=== PATIENT | male | born 1995 | race American Indian/Alaskan Native ===

== ENCOUNTER 2020-07-07 14:41 | Emergency (ER) | payer SELFPAY ==
[2020-07-07 16:20] VITALS: BP 106/69
--- NOTE | 2020-07-07 16:23 | Emergency Department Report ---
ED ENT HPI - General Chief complaint: Sore Throat Stated complaint: NAS, SORE THROAT Time Seen by Provider: 07/07/20 16:13 Source: patient Mode of arrival: Ambulatory Limitations: No Limitations - History of Present Illness Initial comments: Patient is a 24-year-old male who presents emergency room with complaints of a sore throat that began a week ago. He states in the last 2 days it has become more uncomfortable and hurts to swallow. He states he is able to tolerate p.o. intake. He states that his tonsils feel swollen and he noticed some white spots. He states he also has right ear pain. He denies any fever, nausea, vomiting, diarrhea, ear drainage, hearing changes, shortness of breath. Past medical history of HIV and reports he is undetectable. No allergies to medications. No known sick contacts. No recent travel. - Related Data Previous Rx's Medication Instructions Recorded Last Taken Type Nystas/Diphen/Xyl Visc/Mylanta 30 ml MM Q4H PRN #300 ml 07/07/20 Unknown Rx [Magic Mouthwash] Penicillin Vk [Veetids TAB] 500 mg PO BID 10 Days #40 tablet 07/07/20 Unknown Rx Allergies Allergy/AdvReac Type Severity Reaction Status Date / Time No Known Allergies Allergy Verified 07/07/20 15:18 ED Dental HPI - General Chief complaint: Sore Throat Stated complaint: NAS, SORE THROAT Time Seen by Provider: 07/07/20 16:13 Source: patient Mode of arrival: Ambulatory Limitations: No Limitations - Related Data Previous Rx's Medication Instructions Recorded Last Taken Type Nystas/Diphen/Xyl Visc/Mylanta 30 ml MM Q4H PRN #300 ml 07/07/20 Unknown Rx [Magic Mouthwash] Penicillin Vk [Veetids TAB] 500 mg PO BID 10 Days #40 tablet 07/07/20 Unknown Rx Allergies Allergy/AdvReac Type Severity Reaction Status Date / Time No Known Allergies Allergy Verified 07/07/20 15:18 ED Review of Systems ROS: Stated complaint: NAS, SORE THROAT Other details as noted in HPI Comment: All other systems reviewed and negative ED Past Medical Hx - Past Medical History Previous Medical History?: No - Surgical History Additional Surgical History: L arm sx - Social History Smoking Status: Current Every Day Smoker Substance Use Type: None - Medications Home Medications: Home Medications Medication Instructions Recorded Confirmed Last Taken Type Nystas/Diphen/Xyl Visc/Mylanta 30 ml MM Q4H PRN #300 ml 07/07/20 Unknown Rx [Magic Mouthwash] Penicillin Vk [Veetids TAB] 500 mg PO BID 10 Days #40 tablet 07/07/20 Unknown Rx ED Physical Exam - General Limitations: No Limitations General appearance: alert, in no apparent distress - Head Head exam: Present: atraumatic, normocephalic - Eye Eye exam: Present: normal appearance - ENT ENT exam: Present: mucous membranes moist, TM's normal bilaterally, normal external ear exam, other (tonsillar hypertrophy with small amount of exudates bilaterally, uvula is midline, no uvular edema or deviation, no trismus, no muffled voice) - Respiratory Respiratory exam: Present: normal lung sounds bilaterally. Absent: respiratory distress, wheezes, rales, rhonchi, stridor, chest wall tenderness, accessory muscle use, decreased breath sounds, prolonged expiratory - Cardiovascular Cardiovascular Exam: Present: normal rhythm, tachycardia (mildly), normal heart sounds. Absent: systolic murmur, diastolic murmur, rubs, gallop - Neurological Exam Neurological exam: Present: alert, oriented X3 - Psychiatric Psychiatric exam: Present: normal affect, normal mood - Skin Skin exam: Present: warm, dry, intact ED Course Vital Signs 07/07/20 07/07/20 15:18 16:44 Temperature 99.3 F Pulse Rate 110 H 89 Respiratory 18 Rate Blood Pressure 106/69 O2 Sat by Pulse 99 Oximetry ED Medical Decision Making - Lab Data Vital Signs 07/07/20 07/07/20 15:18 16:44 Temperature 99.3 F Pulse Rate 110 H 89 Respiratory 18 Rate Blood Pressure 106/69 O2 Sat by Pulse 99 Oximetry - Medical Decision Making Patient is a 24-year-old male who presents emergency room with complaints of a sore throat that began a week ago. He states in the last 2 days it has become more uncomfortable and hurts to swallow. He states he is able to tolerate p.o. intake. He states that his tonsils feel swollen and he noticed some white spots. He states he also has right ear pain. He denies any fever, nausea, vomiting, diarrhea, ear drainage, hearing changes, shortness of breath. Past medical history of HIV and reports he is undetectable. No allergies to medications. No known sick contacts. No recent travel. Initial triage vitals with tachycardia which improved upon repeat. On exam:tonsillar hypertrophy with small amount of exudates bilaterally, uvula is midline, no uvular edema or deviation, no trismus, no muffled voice. Examination appears consistent with tonsillitis. Patient given prescription for penicillin VK and Magic mouthwash. Advised patient Please take medication as prescribed. Increase your fluid intake. May take Tylenol or ibuprofen as needed for discomfort. Gargle with warm salt water. After 24 hours on antibiotics throw away your toothbrush. Do not drink after others or allow anyone to drink after you. Follow-up with your primary care doctor for reexamination and to make sure symptoms are improving. Return to emergency room for any new or worsening symptoms. Critical care attestation.: If time is entered above; I have spent that time in minutes in the direct care of this critically ill patient, excluding procedure time. ED Disposition Clinical Impression: Tonsillitis Disposition: TO HOME OR SELFCARE Is pt being admited?: No Does the pt Need Aspirin: No Condition: Stable Instructions: Tonsillitis, [id number] Additional Instructions: Please take medication as prescribed. Increase your fluid intake. May take Tylenol or ibuprofen as needed for discomfort. Gargle with warm salt water. After 24 hours on antibiotics throw away your toothbrush. Do not drink after others or allow anyone to drink after you. Follow-up with your primary care doctor for reexamination and to make sure symptoms are improving. Return to emergency room for any new or worsening symptoms. Prescriptions: Nystas/Diphen/Xyl Visc/Mylanta [Magic Mouthwash] 30 ml MM Q4H PRN #300 ml PRN Reason: sore throat Penicillin Vk [Veetids TAB] 500 mg PO BID 10 Days #40 tablet Referrals: JESSICA ROSAS MD [Staff Physician] - 3-5 Days [facility] [Provider Group] - 3-5 Days [facility] [Outside] - 3-5 Days [facility], [LAB/CONTRACT] - 3-5 Days Time of Disposition: 16:22 Print Language: [place]OU[place]
== END 2020-07-07 16:44 | disposition home or self-care (01) ==
LOC: ED 14:41
DX: J03.90 Acute tonsillitis, unspecified (principal); F17.200 Nicotine dependence, unspecified, uncomplicated; Z79.899 Other long term (current) drug therapy
CPT/HCPCS: 99282

== ENCOUNTER 2021-10-27 10:47 | Emergency (ER) | payer SELFPAY ==
[2021-10-27 12:52] VITALS: BP 103/78
--- NOTE | 2021-10-27 15:44 | Emergency Department Report ---
- General Chief complaint: Skin/Abscess/Foreign Body Stated complaint: SORE IN MOUTH Time Seen by Provider: 10/27/21 13:39 Source: patient Mode of arrival: Ambulatory Limitations: No Limitations - History of Present Illness Initial comments: 26-year-old male history of HIV on ART's with therapeutic levels presents to the emergency department with genital and oral sore. Patient reports he has noticed a sore in his groin area and has mild first No penile discharge, no dysuria, no nausea vomiting abdominal pain, no fever or chills. No hematuria, no flank pain, no weakness dizziness chest pain or shortness of breath. Sexually active male with male partners with and without condom use. - Related Data Previous Rx's Medication Instructions Recorded Last Taken Type Penicillin Vk [Veetids TAB] 500 mg PO BID 10 Days #40 tablet 07/07/20 Unknown Rx Acyclovir 400 mg PO TID 10 Days #30 10/27/21 Unknown Rx Nystas/Diphen/Xyl Visc/Mylanta 30 ml MM Q4H PRN #300 ml 10/27/21 Unknown Rx [Magic Mouthwash] Allergies Allergy/AdvReac Type Severity Reaction Status Date / Time No Known Allergies Allergy Verified 10/27/21 12:47 Abscess Boil HPI - HPI Chief Complaint: Skin/Abscess/Foreign Body Stated Complaint: SORE IN MOUTH Time Seen by Provider: 10/27/21 13:39 Home Medications: Previous Rx's Medication Instructions Recorded Last Taken Type Penicillin Vk [Veetids TAB] 500 mg PO BID 10 Days #40 tablet 07/07/20 Unknown Rx Acyclovir 400 mg PO TID 10 Days #30 10/27/21 Unknown Rx Nystas/Diphen/Xyl Visc/Mylanta 30 ml MM Q4H PRN #300 ml 10/27/21 Unknown Rx [Magic Mouthwash] Allergies/Adverse Reactions: Allergies Allergy/AdvReac Type Severity Reaction Status Date / Time No Known Allergies Allergy Verified 10/27/21 12:47 ED Review of Systems ROS: Stated complaint: SORE IN MOUTH Other details as noted in HPI Constitutional: no symptoms reported ENT: denies: throat pain Respiratory: denies: cough, orthopnea Cardiovascular: denies: chest pain, palpitations Endocrine: denies: excessive sweating, intolerance to cold Genitourinary: denies: urgency, dysuria, frequency, hematuria Musculoskeletal: denies: back pain, joint swelling Skin: lesions, change in color. denies: rash Neurological: denies: headache, weakness, numbness, paresthesias, confusion Hematological/Lymphatic: swollen glands. denies: easy bleeding, easy bruising ED Past Medical Hx - Past Medical History Previous Medical History?: Yes Additional medical history: HIV - Surgical History Past Surgical History?: No Additional Surgical History: L arm sx - Social History Smoking Status: Current Every Day Smoker Substance Use Type: None - Medications Home Medications: Home Medications Medication Instructions Recorded Confirmed Last Taken Type Penicillin Vk [Veetids TAB] 500 mg PO BID 10 Days #40 tablet 07/07/20 Unknown Rx Acyclovir 400 mg PO TID 10 Days #30 10/27/21 Unknown Rx Nystas/Diphen/Xyl Visc/Mylanta 30 ml MM Q4H PRN #300 ml 10/27/21 Unknown Rx [Magic Mouthwash] ED Physical Exam - General Limitations: No Limitations General appearance: alert, in no apparent distress - Head Head exam: Present: atraumatic - Eye Eye exam: Present: normal appearance - ENT ENT exam: Present: mucous membranes moist, other (1 ulcerated lesion under his tongue) - Neck Neck exam: Present: normal inspection. Absent: tenderness - Respiratory Respiratory exam: Present: normal lung sounds bilaterally - Cardiovascular Cardiovascular Exam: Present: regular rate - GI/Abdominal GI/Abdominal exam: Present: soft. Absent: distended, tenderness, guarding - Rectal Rectal exam: Present: deferred - exam: Present: other (1 ulcerated lesion at the base of his penis, tender no fluctuance no induration no erythema). Absent: testicular tenderness, urethral discharge, scrotal swelling - Extremities Exam Extremities exam: Present: normal inspection, full ROM - Back Exam Back exam: Present: normal inspection, full ROM - Neurological Exam Neurological exam: Present: alert, oriented X3, CN II-XII intact - Psychiatric Psychiatric exam: Present: normal affect, normal mood ED Course Vital Signs 10/27/21 12:48 Temperature 99.8 F H Pulse Rate 94 H Respiratory 18 Rate Blood Pressure 103/78 [Right] O2 Sat by Pulse 100 Oximetry ED Medical Decision Making - Medical Decision Making 26-year-old male history of HIV on antiviral therapy presenting with genital and oral sore. No fever, no dysuria no nausea vomiting abdominal pain no behavior changes, he denies fever however patient has a low-grade temperature in triage, exam is concerning for chancroid sore, coupled with the setting of HIV, will treat with ceftriaxone, azithromycin, and prescription for acyclovir. Discharge patient to the health department for further testing including syphilis.including avoid spread of infection to others abstain from sex until treatment is completed and no longer infectious, condom use. Patient also has 1 solitary rash in his medial thigh "concerned it might be monkey pox", I have also referred him to the health department for further testing. Patient remained stable nontoxic-appearing, afebrile, ambulating steadily without assistance. Gone over ED findings with patient as well as plan for follow-up. Also discussed return precautions with patient, all questions and concerns addressed. Patient is stable to be discharged follow-up outpatient. Audio voice dictation device used, hence the chart might contain some dictation errors, mispronunciations, wrong spelling and wrong verbiage. Critical care attestation.: If time is entered above; I have spent that time in minutes in the direct care of this critically ill patient, excluding procedure time. ED Disposition Clinical Impression: Genital lesion, male, Oral lesion Disposition: HOME / SELF CARE / HOMELESS Is pt being admited?: No Does the pt Need Aspirin: No Condition: Stable Instructions: Safe Sex, Genital Herpes Additional Instructions: Be sure to follow-up with the health department of we have discussed Make sure no sexual activity 1 2 you have been seen and cleared and your symptoms have resolved Do not hesitate to return to the emergency department if fever vomiting weakness fatigue body ache difficulty urinating or any other concerning symptoms Prescriptions: Acyclovir 400 mg PO TID 10 Days #30 Nystas/Diphen/Xyl Visc/Mylanta [Magic Mouthwash] 30 ml MM Q4H PRN #300 ml PRN Reason: sore throat Referrals: [facility] [Outside] - 3-5 Days
[2021-10-27] MEDS ORDERED: LIDOCAINE-MPF (1%) 10 MG/1 ML VIAL 5 ML INFILTRATI ONE (15:56)
[2021-10-27] MEDS ORDERED: AZITHROMYCIN 1 GM ORAL PWDR PACKET PO ONE (15:56)
== END 2021-10-27 16:45 | disposition home or self-care (01) ==
LOC: ED 10:47
DX: N50.89 Other specified disorders of the male genital organs (principal); K13.70 Unspecified lesions of oral mucosa; F17.200 Nicotine dependence, unspecified, uncomplicated; Z79.899 Other long term (current) drug therapy
CPT/HCPCS: 99282; J0696; J3490